=== PATIENT | male | born 1990 | race Caucasian/White ===

== ENCOUNTER 2019-01-16 19:31 | Emergency (ER) | payer OTHER ==
[~2019-01-16] VITALS: Ht 177.8 cm; Wt 105.3 kg
[2019-01-16 19:48] LABS: BASOPHILS % (AUTO) 1 % (0-10); EOSINOPHILS % (AUTO) 2 % (0-10); HEMATOCRIT 44 % (40-54); HEMOGLOBIN 14.5 G/DL (13.3-17.7); LYMPHOCYTES % (AUTO) 32 % (12-44); MEAN CORPUSCULAR HEMOGLOBIN 28 PG (25-34); MEAN CORPUSCULAR HGB CONC 33 G/DL (32-36); MEAN CORPUSCULAR VOLUME 85 FL (80-99); MEAN PLATELET VOLUME 10.7 FL (7.4-10.4); MONOCYTES % (AUTO) 6 % (0-12); NEUTROPHILS % (AUTO) 59 % (42-75); PLATELET COUNT 301 10^3/uL (130-400); RED CELL DISTRIBUTION WIDTH 13.2 % (10.0-14.5); WHITE BLOOD COUNT 10.5 10^3/uL (4.3-11.0)
[2019-01-16 19:49] LABS: BASOPHILS # (AUTO) 0.1 10^3/uL (0.0-0.1); EOSINOPHILS # (AUTO) 0.2 10^3/uL (0.0-0.3); LYMPHOCYTES # (AUTO) 3.3 X 10^3 (1.0-4.0); MONOCYTES # (AUTO) 0.6 X 10^3 (0.0-1.0); NEUTROPHILS # (AUTO) 6.2 X 10^3 (1.8-7.8)
--- NOTE | 2019-01-16 20:04 | ED General ---
General Chief Complaint: Cardiac/General Problems Stated Complaint: IRREGULAR HEART RATE, SOB, PRESSURE IN CHEST Nursing Triage Note: Patient states that he was watching TV when he felt like his heart was pounding in his chest. Patient denies having any pain before, during or after the event. There is a family history of cardiac issues. Patient wanted to be checked out. Nursing Sepsis Screen: No Definite Risk Source of Information: Patient Exam Limitations: No Limitations History of Present Illness Date Seen by Provider: Jan 16, 2019 Time Seen by Provider: 19:50 Initial Comments Patient presents with feeling of his heart pounding rapidly while watching television tonight. States that it felt irregular and was uncomfortable and currently took his breath away. Admits to drinking a Dr. Pepper when he got home which is not that unusual for him, denies any illicit drug use. Denies any previous occurrence of similar symptoms. Denies any abdominal pain nausea vomiting. Had a normal dinner tonight without incident. Denies fever chills or shortness of air. Allergies and Home Medications Allergies Coded Allergies: No Known Drug Allergies (Unverified , 01/16/19) Patient Home Medication List Home Medication List Reviewed: Yes Review of Systems Review of Systems Constitutional: see HPI; No dizziness, No fever, No malaise, No weakness Respiratory: No cough, No dyspnea on exertion, No hemoptysis, No orthopnea, No phlegm, No short of breath Cardiovascular: see HPI; No chest pain, No edema, No Hx of Intervention; palpitations; No syncope, No vascular heart diseas Gastrointestinal: No abdominal pain, No constipation, No loss of appetite, No nausea, No vomiting Genitourinary: No dysuria, No frequency Musculoskeletal: No back pain, No joint pain, No muscle pain, No muscle stiffness, No muscle cramps, No muscle weakness, No neck pain Skin: see HPI; No pruritus, No rash Psychiatric/Neurological: Denies Anxiety, Denies Depressed, Denies Emotional Problems, Denies Headache, Denies Numbness, Denies Paresthesia, Denies Pre- Existing Deficit, Denies Seizure, Denies Tremors, Denies Weakness; Other (admits to increased stress at work) Past Xgxyvqs-Apygnw-Yijdxv Hx Patient Social History Alcohol Use: Denies Use Recreational Drug Use: No Smoking Status: Never a Smoker Recent Foreign Travel: No Contact w/Someone Who Travel: No Recent Infectious Disease Expo: No Physical Abuse: No Sexual Abuse: No Mistreated: No Fear: No Seasonal Allergies Seasonal Allergies: No Past Medical History Surgeries: Yes (Scrotal Surgery) Appendectomy Respiratory: No Cardiac: No Neurological: No Genitourinary: No Gastrointestinal: No Musculoskeletal: No Endocrine: No HEENT: No Cancer: No Psychosocial: No Integumentary: No Physical Exam Vital Signs Vital Signs - First Documented 01/16/19 19:35 Temp 37.2 Pulse 98 Resp 18 B/P (MAP) 165/108 (127) Pulse Ox 97 O2 Delivery Room Air Capillary Refill : Less Than 3 Seconds Height, Weight, BMI Height: '" Weight: lbs. oz. kg; 33.00 BMI Method: General Appearance: No Apparent Distress, WD/WN HEENT: PERRL/EOMI, TMs Normal, Normal ENT Inspection, Pharynx Normal Neck: Full Range of Motion, Non Tender, Supple Respiratory: Chest Non Tender, Lungs Clear, Normal Breath Sounds Cardiovascular: Regular Rate, Rhythm, No Edema, No Gallop, No JVD, No Murmur, Normal Peripheral Pulses, Extra Beats; No JVD, No Tachycardia Gastrointestinal: Normal Bowel Sounds; No Non Tender; Soft; No Distended, No Guarding Back: Normal Inspection, No CVA Tenderness Extremity: Normal Capillary Refill, Non Tender, No Pedal Edema; No Calf Tenderness Neurologic/Psychiatric: Alert, Oriented x3, No Motor/Sensory Deficits, Normal Mood/Affect Skin: Normal Color, Warm/Dry Progress/Results/Core Measures Suspected Sepsis Recent Fever Within 48 Hours: No Infection Criteria Present: None New/Unexplained Altered Menta: No Sepsis Screen: No Definite Risk SIRS Temperature: Pulse: 98 Respiratory Rate: 18 Laboratory Tests 01/16/19 19:40: White Blood Count 10.5 Blood Pressure 165 /108 Mean: 127 Laboratory Tests 01/16/19 19:40: Creatinine 0.78, Platelet Count 301, Total Bilirubin 0.3 Results/Orders Lab Results Laboratory Tests Test 01/16/19 19:40 Range/Units White Blood Count 10.5 4.3-11.0 10^3/uL Red Blood Count 5.18 4.35-5.85 10^6/uL Hemoglobin 14.5 13.3-17.7 G/DL Hematocrit 44 40-54 % Mean Corpuscular Volume 85 80-99 FL Mean Corpuscular Hemoglobin 28 25-34 PG Mean Corpuscular Hemoglobin Concent 33 32-36 G/DL Red Cell Distribution Width 13.2 10.0-14.5 % Platelet Count 301 130-400 10^3/uL Mean Platelet Volume 10.7 H 7.4-10.4 FL Neutrophils (%) (Auto) 59 42-75 % Lymphocytes (%) (Auto) 32 12-44 % Monocytes (%) (Auto) 6 0-12 % Eosinophils (%) (Auto) 2 0-10 % Basophils (%) (Auto) 1 0-10 % Neutrophils # (Auto) 6.2 1.8-7.8 X 10^3 Lymphocytes # (Auto) 3.3 1.0-4.0 X 10^3 Monocytes # (Auto) 0.6 0.0-1.0 X 10^3 Eosinophils # (Auto) 0.2 0.0-0.3 10^3/uL Basophils # (Auto) 0.1 0.0-0.1 10^3/uL Sodium Level 142 135-145 MMOL/L Potassium Level 3.9 3.6-5.0 MMOL/L Chloride Level 104 98-107 MMOL/L Carbon Dioxide Level 25 21-32 MMOL/L Anion Gap 13 5-14 MMOL/L Blood Urea Nitrogen 9 7-18 MG/DL Creatinine 0.78 0.60-1.30 MG/DL Estimat Glomerular Filtration Rate > 60 BUN/Creatinine Ratio 12 Glucose Level 119 H 70-105 MG/DL Calcium Level 9.4 8.5-10.1 MG/DL Corrected Calcium 9.0 8.5-10.1 MG/DL Total Bilirubin 0.3 0.1-1.0 MG/DL Aspartate Amino Transf (AST/SGOT) 19 5-34 U/L Alanine Aminotransferase (ALT/SGPT) 22 0-55 U/L Alkaline Phosphatase 84 40-136 U/L Troponin I < 0.30 <0.30 NG/ML Total Protein 7.1 6.4-8.2 GM/DL Albumin 4.5 3.2-4.5 GM/DL My Orders Orders - ROVENSTJULIAN PURDY DO Ed Iv/Invasive Line Start (01/16/19 19:39) Cbc With Automated Diff (01/16/19 19:39) Comprehensive Metabolic Panel (01/16/19 19:39) Troponin I Fs (01/16/19 19:39) Chest 1 View Ap/Pa Only (01/16/19 19:39) Ekg Tracing (01/16/19 19:39) Monitor-Rhythm Ecg Trace Only (01/16/19 19:47) Ns Iv 1000 Ml (Sodium Chloride 0.9%) (01/16/19 20:15) Vital Signs/I&O 01/16/19 01/16/19 19:35 20:34 Temp 37.2 37.0 Pulse 98 87 Resp 18 23 B/P (MAP) 165/108 (127) 136/95 Pulse Ox 97 97 O2 Delivery Room Air Room Air Capillary Refill : Less Than 3 Seconds Blood Pressure Mean: 127 ECG Initial ECG Impression Date: Jan 16, 2019 Initial ECG Impression Time: 19:33 Initial ECG Rate: 99 Initial ECG Rhythm: Normal Sinus, PVC Initial ECG Intervals: Normal Initial ECG Impression: Normal Initial ECG Comparisson: No Previous ECG Available Comment NO ST changes. Multiple PVC's Departure Impression Primary Impression: Palpitations Disposition: 01 HOME, SELF-CARE Condition: Improved Departure-Patient Inst. Referrals: NO,LOCAL PHYSICIAN (PCP) Primary Care Physician [facility] call tomorrow to make a follow up appointment Patient Instructions: Palpitations (DC) JULIAN HOLLOWAY DO Jan 16, 2019 20:04
[2019-01-16 20:13] LABS: ALANINE AMINOTRANSFERASE 22 U/L (0-55); ALKALINE PHOSPHATASE 84 U/L (40-136); BILIRUBIN,TOTAL 0.3 MG/DL (0.1-1.0); BUN/CREATININE RATIO 12; CALCIUM 9.4 MG/DL (8.5-10.1); CARBON DIOXIDE 25 MMOL/L (21-32); CHLORIDE 104 MMOL/L (98-107); CREATININE SERUM 0.78 MG/DL (0.60-1.30); GFR ESTIMATED > 60; GLUCOSE 119 MG/DL (70-105); POTASSIUM 3.9 MMOL/L (3.6-5.0); SODIUM 142 MMOL/L (135-145); TOTAL PROTEIN 7.1 GM/DL (6.4-8.2)
[2019-01-16 20:14] LABS: ALBUMIN 4.5 GM/DL (3.2-4.5)
[2019-01-16] MEDS ORDERED: NS IV 1000 ML 1,000 ML IV SCH (20:15)
--- NOTE | 2019-01-16 20:16 | Diagnostic Imaging Report ---
EXAMINATION: Chest 1 view at 7:33 PM INDICATION: Irregular heartbeat There are no prior studies available for comparison. The heart size is within normal limits. The lungs are clear. There is no evidence for failure, pneumonia or for a pleural effusion. The mediastinum is not widened. The osseous structures are intact. External cardiac monitoring electrodes are noted. IMPRESSION: There is no evidence for an acute cardiopulmonary abnormality. Dictated by: Dictated on workstation # [id number]
[2019-01-16 20:34] VITALS: BP 136/95
== END 2019-01-16 20:34 | disposition home or self-care (01) ==
LOC: ER FS 19:36
DX: R00.2 Palpitations (principal); Z90.49 Acquired absence of other specified parts of digestive tract
CPT/HCPCS: 36415; 71045; 80053; 84484; 85025; 93005; 93041